=== PATIENT | male | born 1975 | race Caucasian/White ===

== ENCOUNTER 2022-03-06 09:21 | Outpatient (CLI) | payer BC, SELFPAY ==
[2022-03-06 14:30] LABS: Creatinine Urine 64.5 mg/dL
[2022-03-06 14:35] LABS: Microalbumin Creatinine Ratio 10 mg/g (0-30); Microalbumin Urine 1 mg/dL
[2022-03-06 15:04] LABS: Chloride* 92 mmol/L (96-114)
[2022-03-06 15:05] LABS: Potassium* 4.6 mmol/L (3.6-5.1)
[2022-03-06 15:07] LABS: Carbon Dioxide* 23 mmol/L (20-32); Cholesterol* 182 mg/dL (90-199); Creatinine* 0.6 mg/dL (0.5-1.5); Estimated Glomerular Filt Rate 121 ml/min
[2022-03-06 15:08] LABS: Alanine Aminotransferase* 23 U/L (4-50); Alkaline Phosphatase* 74 U/L (40-150); Aspartate Amino Transferase* 30 U/L (12-35); Bilirubin Total* 0.6 mg/dL (0.1-1.5); Blood Urea Nitrogen* 12 mg/dL (5-24); Calcium* 9.1 mg/dL (8.4-10.6); Glucose* 108 mg/dL (60-115); HDL Cholesterol* 66 mg/dL (>=40); LDL Cholesterol Calculated 97 mg/dL (<100); Sodium* 125 mmol/L (135-149); Triglycerides* 95 mg/dL (40-149)
[2022-03-09 01:11] LABS: Urine Osmolality 435 mOsm/kg
== END 2022-03-06 09:22 | disposition home or self-care (01) ==
PROVIDERS: PCP Family Medicine; Visit Provider Family Medicine
DX: Z00.00 Encounter for general adult medical examination without abnormal findings (principal); D72.819 Decreased white blood cell count, unspecified; E87.1 Hypo-osmolality and hyponatremia; I10 Essential (primary) hypertension; M85.80 Other specified disorders of bone density and structure, unspecified site
CPT/HCPCS: 80053; 80061; 82043; 82570; 83935; 84300; 84443

== ENCOUNTER 2022-08-16 15:48 | Outpatient (REF) | payer BC, SELFPAY ==
[2022-08-16 17:01] LABS: Sodium* 127 mmol/L (135-149)
== END 2022-08-16 15:49 | disposition home or self-care (01) ==
LOC: NPINS 15:48
DX: R56.9 Unspecified convulsions (principal)
CPT/HCPCS: 80189; 84295